=== PATIENT | male | born 1945 | race Caucasian/White ===

== ENCOUNTER 2022-09-24 14:21 | Outpatient (CLI) | payer MEDICARE | END 2022-09-24 14:22 | disposition home or self-care (01) | LOC: ULT 14:21 | PROVIDERS: ATTEND Internal Medicine Nephrology | DX: N18.30 Chronic kidney disease, stage 3 unspecified (principal); N28.1 Cyst of kidney, acquired; N13.30 Unspecified hydronephrosis | CPT/HCPCS: 76770 ==

== ENCOUNTER 2022-10-18 13:27 | Outpatient (CLI) | payer MEDICARE | END 2022-10-18 13:28 | disposition home or self-care (01) | LOC: CT 13:27 | PROVIDERS: ATTEND Internal Medicine Nephrology | DX: N20.0 Calculus of kidney (principal); Z90.81 Acquired absence of spleen | CPT/HCPCS: 74176 ==